=== PATIENT | male | born 1990 | race Caucasian/White ===

== ENCOUNTER → 2024-02-21 | Outpatient (CLI) | payer OTHER, MEDICAID | LOC: M LAB 14:37 | PROVIDERS: ATTEND Physician Assistant | DX: Z01.89 Encounter for other specified special examinations (principal) ==

== ENCOUNTER → 2024-02-23 | Outpatient (CLI) | payer OTHER | LOC: M RAD 16:54 | PROVIDERS: ATTEND Physician Assistant Medical | DX: R76.11 Nonspecific reaction to tuberculin skin test without active tuberculosis (principal) ==